=== PATIENT | female | born 1975 | race Caucasian/White ===

== ENCOUNTER 2017-06-16 10:38 | Emergency (ER) | payer SELFPAY ==
[2017-06-16 10:56] VITALS: BP 156/79; PULSE 78; TEMP 98.5; BMI 21.5
--- NOTE | 2017-06-16 12:04 | PDOC ---
History of Present Illness - General Chief Complaint: Respiratory Stated Complaint: DIFFICULTY BREATHING Time Seen by Provider: 06/16/17 11:33 - History of Present Illness Initial Comments: 06/16/17 11:52 CHIEF COMPLAINT: shortness of breath HISTORY OF PRESENT ILLNESS: 41 yo F with no significant PMH presents to [facility] with shortness of breath x 1 week. Patient reports that this shortness of breath is unusual as she "has always exercised regularly" and never had any problems, but this past week she will have some chest discomfort and shortness of breath while exercising, and then even after she stops exercising she continues to feel as if she "can't get enough air." She reports feeling "like I 'm hot to my left jaw or cheek" intermittently. She does report "a little pain to the outside of my left leg, but not really." She denies any fever, chills, nausea, vomiting, diarrhea, abdominal pain, cough, sneezing, recent travel, prolonged periods of sitting, or use of contraceptives. PAST MEDICAL HISTORY: Denies past medical history FAMILY HISTORY: Denies SOCIAL HISTORY:Denies tobacco, alcohol, illicit drug use. SURGICAL HISTORY: Denies ALLERGIES: No known drug allergies REVIEW OF SYSTEMS General/Constitutional: Denies fever or chills. Denies weakness, weight change. HEENT: Denies change in vision. Denies ear pain or discharge. Denies sore throat. Cardiovascular: Shortness of breath x 1 week. Respiratory: Denies cough, wheezing, or hemoptysis. Gastrointestinal: Denies nausea, vomiting, diarrhea or constipation. Denies rectal bleeding. Genitourinary: Denies dysuria, frequency, or change in urination. Musculoskeletal: Denies joint or muscle swelling or pain. Denies neck or back pain. Skin and breasts: Denies rash or easy bruising. Neurologic: Denies headache, vertigo, loss of consciousness, or loss of sensation. PHYSICAL EXAM General Appearance: Well-appearing, appropriately dressed. No apparent distress. HEENT: EOMI, PERRLA, normal ENT inspection, normal voice, TMs normal, pharynx normal. No conjunctival pallor. No photophobia, scleral icterus. Neck: Supple. Trachea midline. No tenderness, rigidity, carotid bruit, stridor , lymphadenopathy, or thyromegaly. Respiratory/Chest: Lungs CTAB. No shortness of breath, chest tenderness, respiratory distress, accessory muscle use. No crackles, rales, rhonchi, stridor , wheezing, dullness Cardiovascular: RRR. S1, S2. Vascular Pulses: Dorsalis-Pedis (R): 2+, Dorsalis-Pedis (L): 2+ Gastrointestinal/Abdominal: Normal bowel sounds. Abdomen soft, non-distended. No tenderness or rebound tenderness. No organomegaly, pulsatile mass, guarding , hernia, hepatomegaly, splenomegaly. Musculoskeletal/Extremities: Negative Margarita's sign, no calf tenderness. Minimal tenderness to anterolateral inferior left thigh. Normal inspection. FROM of all extremities, normal capillary refill. Pelvis Stable. No CVA tenderness. No tenderness to extremities, pedal edema, swelling, erythema or deformity. Integumentary: Appropriate color, dry, warm. No cyanosis, erythema, jaundice or rash Neurologic: housing case manager II-XII intact. Fully oriented, alert. Appropriate mood/affect. Motor strength 5/5. No appreciable EOM palsy, facial droop or sensory deficit. Past History - Past Medical History Allergies/Adverse Reactions: Allergies Allergy/AdvReac Type Severity Reaction Status Date / Time No Known Allergies Allergy Verified 06/16/17 10:51 Home Medications: Ambulatory Orders NK [No Known Home Medication] 06/16/17 COPD: No Other medical history: DENIES. - Suicide/Smoking/Psychosocial Hx Smoking History: Never smoked Hx Alcohol Use: Yes (OCCASIONALLY) Substance Use Type: Alcohol *Physical Exam - Vital Signs Last Vital Signs Temp Pulse Resp BP Pulse Ox 98.5 F 78 19 156/79 100 06/16/17 10:51 06/16/17 10:51 06/16/17 10:51 06/16/17 10:51 06/16/17 10:51 Medical Decision Making - Medical Decision Making 06/16/17 12:06 41 yo F with no significant PMH presents to [facility] with shortness of breath x 1 week. Patient denies any infectious symptoms, denies any history of CAD. Concern for cardiac etiology vs PE. -D-dimer, card profile -EKG 06/16/17 13:38 Trop negative. *DC/Admit/Observation/Transfer Diagnosis at time of Disposition: Shortness of breath - Discharge Dispostion Disposition: HOME Condition at time of disposition: Stable Admit: No - Referrals Referrals: Erick Mclain MD [Staff Physician] - Da Young MD [Staff Physician] - - Patient Instructions Printed Discharge Instructions: DI for Shortness of Breath Additional Instructions: Please follow up with Drs. Mclain or Hector within the next TWO days for complete physical. If you develop any new shortness of breath, difficulty breathing, palpitations, chest pain, pain to your left arm or jaw, or any new or worsening symptoms, please return to the ER immediately. Por favor, bg un seguimiento con el Dr. Mclain o Dr. Young dentro de los pr ximos DOS saeed para completar el examen fsico. Si desarrolla cualquier nueva dificultad para respirar, dificultad para respirar, palpitaciones, dolor en el pecho, dolor en cardenas brazo titus o mandbula, o cualquier sntoma nuevo o que empeora, por favor regrese a la arturo de urgencias inmediatamente. Print Language: MALTESE - Post Discharge Activity
--- NOTE | 2017-06-17 17:14 | EKG ---
Test Reason : Blood Pressure : / mmHG Vent. Rate : 078 BPM Atrial Rate : 078 BPM P-R Int : 146 ms QRS Dur : 100 ms QT Int : 418 ms P-R-T Axes : 066 045 046 degrees QTc Int : 476 ms NORMAL SINUS RHYTHM NORMAL ECG WHEN COMPARED WITH ECG OF 03-DEC-2008 19:45, NO SIGNIFICANT CHANGE WAS FOUND Confirmed by ROCIO JOYNER MD ([id number]) on 06/17/2017 5:13:50 PM Referred By: JAMIE Confirmed By:ROCIO JOYNER MD
== END 2017-06-16 13:45 | disposition home or self-care (01) ==
LOC: JERFT 10:38
DX: R06.02 Shortness of breath (principal)
CPT/HCPCS: 36415; 71046-TC; 82550; 82553; 84484; 85379; 93005; 93010; 99281-25

== ENCOUNTER 2017-06-27 07:30 | Emergency (ER) | payer SELFPAY ==
[2017-06-27 07:40] VITALS: BMI 21.4
[2017-06-27] MEDS ORDERED: METOCLOPRAMIDE HCL INJECTION 10 MG/2 ML VIAL IVPB ONE (09:42)
[2017-06-27] MEDS ORDERED: SODIUM CHLORIDE 1,000 ML IV STA (09:42)
[2017-06-27] MEDS ORDERED: ACETAMINOPHEN 325 MG TABLET (FP) PO ONE (09:43)
[2017-06-27] MEDS ORDERED: ACETAMINOPHEN 325 MG TABLET (FP) ONE (09:53)
[2017-06-27] MEDS ORDERED: METOCLOPRAMIDE HCL INJECTION 10 MG/2 ML VIAL ONE (09:54)
[2017-06-27 10:30] LABS: BASO % 1.3 % (0-2.0); EOS % 1.5 % (0-4.5); HEMATOCRIT 41.3 % (32.4-45.2); HEMOGLOBIN 13.1 GM/dL (10.7-15.3); LYMPH % 36.3 % (8-40); MCH 26.4 pg (25.7-33.7); MCHC 31.8 g/dl (32.0-36.0); MONO % 7.9 % (3.8-10.2); PLATELET COUNT 292 K/MM3 (134-434); RBC 4.97 M/mm3 (3.60-5.2); RDW 17.9 % (11.6-15.6); WHITE BLOOD COUNT 6.1 K/mm3 (4.0-10.0)
[2017-06-27 10:41] LABS: ALK PHOS 71 U/L (45-117); ANION GAP 8 (8-16); BILIRUBIN,TOTAL 0.5 mg/dL (0.2-1.0); BLOOD UREA NITROGEN 6 mg/dL (7-18); CALCIUM 8.8 mg/dL (8.5-10.1); CHLORIDE 105 mmol/L (98-107); CO2 27 mmol/L (21-32); CREATININE 0.6 mg/dL (0.55-1.02); GLUCOSE,RANDOM 96 mg/dL (74-106); SGPT/ALT 19 U/L (12-78); SODIUM 140 mmol/L (136-145); TOT PROT 8.5 g/dl (6.4-8.2)
[2017-06-27 10:45] LABS: POTASSIUM 4.2 mmol/L (3.5-5.1); SGOT/AST 21 U/L (15-37)
[2017-06-27 11:00] LABS: URINE APPEARANCE CLEAR; URINE BILIRUBIN NEGATIVE (NEGATIVE); URINE BLOOD NEGATIVE (NEGATIVE); URINE COLOR LTYELLOW; URINE GLUCOSE (UA) NEGATIVE (NEGATIVE); URINE KETONE NEGATIVE (NEGATIVE); URINE LEUK ESTERASE TRACE (NEGATIVE); URINE NITRITE NEGATIVE (NEGATIVE); URINE PROTEIN NEGATIVE (NEGATIVE); URINE UROBILINOGEN NEGATIVE mg/dL (0.2-1.0)
--- NOTE | 2017-06-27 11:13 | PDOC ---
History of Present Illness - General Chief Complaint: Weakness Stated Complaint: PAIN Time Seen by Provider: 06/27/17 09:14 - History of Present Illness Initial Comments: 06/27/17 11:07 " The patient is a 43 year old female, with no PMH, who presents to the emergency department with left upper and lower extremity numbness since last night. She reports experiencing intermittent numbness localized to the left elbow, as well as the lateral aspect of her left lower leg just below the knee. She denies any weakness or any numbness anywhere else. Pt denies RAYMOND, denies neck pain, denies back pain. She denies visual or auditory changes. She denies dropping things when held in her left hand. She denies gait changes. She denies recent illnesses or sick contacts. She denies bladder or bowel changes. She denies chest pain, shortness of breath, and dizziness. She denies fever, chills, nausea, vomit, diarrhea and constipation. She denies dysuria, frequency , urgency and hematuria. Allergies: NKDA PCP: Dr. Erick Mclain " Past History - Past Medical History Allergies/Adverse Reactions: Allergies Allergy/AdvReac Type Severity Reaction Status Date / Time No Known Allergies Allergy Verified 06/27/17 07:35 Home Medications: Ambulatory Orders NK [No Known Home Medication] 06/27/17 COPD: No - Suicide/Smoking/Psychosocial Hx Smoking History: Never smoked Information on smoking cessation initiated: No Hx Alcohol Use: No Drug/Substance Use Hx: No Substance Use Type: Alcohol Review of Systems - Review of Systems Comments:: 06/27/17 11:10 """GENERAL/CONSTITUTIONAL: No fever or chills. No weakness. HEAD, EYES, EARS, NOSE AND THROAT: No change in vision. No ear pain or discharge. No sore throat. CARDIOVASCULAR: No chest pain or shortness of breath. RESPIRATORY: No cough, wheezing, or hemoptysis. GASTROINTESTINAL: No nausea, vomiting, diarrhea or constipation. GENITOURINARY: No dysuria, frequency, or change in urination. MUSCULOSKELETAL: No joint or muscle swelling or pain. No neck or back pain. SKIN: No rash NEUROLOGIC: (+) numbness to left upper and lower extremities No vertigo, loss of consciousness, ENDOCRINE: No increased thirst. No abnormal weight change. HEMATOLOGIC/LYMPHATIC: No anemia, easy bleeding, or history of blood clots. ALLERGIC/IMMUNOLOGIC: No hives or skin allergy. """ *Physical Exam - Vital Signs Last Vital Signs Temp Pulse Resp BP Pulse Ox 98.5 F 78 17 158/90 100 06/27/17 07:33 06/27/17 07:33 06/27/17 07:33 06/27/17 07:33 06/27/17 07:33 - Physical Exam Comments: 06/27/17 11:11 "GENERAL: Awake, alert, and fully oriented, in no acute distress HEAD: No signs of trauma EYES: PERRLA, EOMI, sclera anicteric, conjunctiva clear ENT: Auricles normal inspection, hearing grossly normal, nares patent, oropharynx clear without exudates. Moist mucosa NECK: Nontender, no stepoffs, Normal ROM, supple, no lymphadenopathy, JVD, or masses LUNGS: Breath sounds equal, clear to auscultation bilaterally. No wheezes, and no crackles HEART: Regular rate and rhythm, normal S1 and S2, no murmurs, rubs or gallops ABDOMEN: Soft, nontender, normoactive bowel sounds. No guarding, no rebound. No masses EXTREMITIES: Normal range of motion, no edema. No clubbing or cyanosis. No cords, erythema, or tenderness NEUROLOGICAL: Cranial nerves II through XII intact. 5/5 strength and sensation in all extremities, Normal speech, normal gait SKIN: Warm, Dry, normal turgor, no rashes or lesions noted. " ED Treatment Course - LABORATORY CBC & Chemistry Diagram: 06/27/17 10:10 06/27/17 10:10 - ADDITIONAL ORDERS Additional order review: Laboratory Results 06/27/17 06/27/17 06/27/17 10:10 10:09 10:09 Sodium 140 Potassium 4.2 Chloride 105 Carbon Dioxide 27 Anion Gap 8 BUN 6 L Creatinine 0.6 Creat Clearance w eGFR > 60 Random Glucose 96 Calcium 8.8 Total Bilirubin 0.5 AST 21 ALT 19 Alkaline Phosphatase 71 Creatine Kinase 113 Troponin I < 0.02 Total Protein 8.5 H Albumin 4.0 Urine HCG, Qual Negative 06/27/17 10:10 RBC 4.97 MCV 83.0 MCHC 31.8 L RDW 17.9 H MPV 10.0 Neutrophils % 53.0 Lymphocytes % 36.3 Monocytes % 7.9 Eosinophils % 1.5 Basophils % 1.3 - Medications Given in the ED: ED Medications Discontinued Medications Generic Name Dose Route Start Last Admin Trade Name Patricio PRN Reason Stop Dose Admin Acetaminophen 650 mg 06/27/17 09:43 06/27/17 10:08 Tylenol - PO 06/27/17 09:44 650 mg ONCE ONE Administration Sodium Chloride 1,000 mls @ 1,000 mls/hr 06/27/17 09:42 06/27/17 10:08 Normal Saline - IV 06/27/17 10:41 1,000 mls/hr ASDIR STA Administration Metoclopramide HCl 10 mg 06/27/17 09:42 06/27/17 10:08 Reglan Injection - IVPB 06/27/17 09:43 10 mg ONCE ONE Administration Medical Decision Making - Medical Decision Making 06/27/17 11:11 41 F with intermittent numbness to L elbow and L knee x 1 day. Has nonfocal neuro exam in ER. CVA very unlikely as pt without risk factors. MS is a consideration but also unlikely as pt with no deficits in ER. - Labs - F/u neurology Labs wnl. Pt is well appearing with no complaints at this time. Clinically stable for DC. I discussed the physical exam findings, ancillary test results and final diagnoses with the patient. I answered all of the patient's questions. The patient was satisfied with the care received and felt comfortable with the discharge plan and treatment plan. The patient agrees to follow up with the primary care physician within 24-72 hours. *DC/Admit/Observation/Transfer Diagnosis at time of Disposition: Paresthesias - Discharge Dispostion Disposition: HOME - Referrals Referrals: Harman Landis DO [Staff Physician] - Da Young MD [Staff Physician] - - Patient Instructions Printed Discharge Instructions: DI for Numbness/tingling Additional Instructions: Please follow up with your primary care doctor and a neurologist within 1 week for further evaluation of your numbness. You may need an MRI to find out why you have these symptoms. Call the numbers provided to make appointments with our internal medicine and neurology clinics. If you experience worsening numbness, weakness, headache, or any other concerning symptoms, return to the ER immediately. - Post Discharge Activity - Attestations Physician Attestion: 06/27/17 11:14 I, Dr. Pardeep Yu MD, attest that this document has been prepared under my direction and personally reviewed by me in its entirety. I further attest, that it accurately reflects all work, treatment, procedures and medical decision -making performed by me.
[2017-06-27 11:29] LABS: EPI CELLS FEW /HPF (FEW); URINE MUCUS RARE
[2017-06-27 12:40] VITALS: BP 140/77; PULSE 70; TEMP 97.5
--- NOTE | 2017-06-28 08:05 | EKG ---
Test Reason : Blood Pressure : / mmHG Vent. Rate : 056 BPM Atrial Rate : 056 BPM P-R Int : 160 ms QRS Dur : 094 ms QT Int : 484 ms P-R-T Axes : 065 058 056 degrees QTc Int : 467 ms SINUS BRADYCARDIA POSSIBLE LEFT ATRIAL ENLARGEMENT BORDERLINE ECG WHEN COMPARED WITH ECG OF 16-JUN-2017 12:16, NO SIGNIFICANT CHANGE WAS FOUND Confirmed by MATHEW DENSON, NICOLAS ([id number]) on 06/28/2017 8:05:15 AM Referred By: Confirmed By:NICOLAS CARMONA MD
== END 2017-06-27 12:25 | disposition home or self-care (01) ==
LOC: JER 07:30
PROC: 3E033GC Introduction of Other Therapeutic Substance into Peripheral Vein, Percutaneous Approach (ICD-10-PCS; principal; 2017-06-27)
PROC: 3E0337Z Introduction of Electrolytic and Water Balance Substance into Peripheral Vein, Percutaneous Approach (ICD-10-PCS; 2017-06-27)
DX: R20.2 Paresthesia of skin (principal)
CPT/HCPCS: 36415; 80053; 81003; 81015; 82550; 84484; 84703; 85025; 93005; 93010; 99284-25

== ENCOUNTER 2021-06-12 11:29 | Emergency (ER) | payer OTHER ==
[2021-06-12 11:35] VITALS: TEMP 98; BMI 20.1
[2021-06-12] MEDS ORDERED: SODIUM CHLORIDE 0.9% 500 ML INFUS.BAG IV ONE (13:06)
[2021-06-12] MEDS ORDERED: METOCLOPRAMIDE HCL INJECTION 10 MG/2 ML VIAL IVPB ONE (13:06)
[2021-06-12] MEDS ORDERED: ACETAMINOPHEN 1000 MG/100 ML BAG IVPB ONE (13:06)
[2021-06-12] MEDS ORDERED: METOCLOPRAMIDE HCL INJECTION 10 MG/2 ML VIAL ONE (13:36)
[2021-06-12] MEDS ORDERED: ACETAMINOPHEN INJECTION 100 ML IVPB ONE (13:37)
[2021-06-12 14:31] LABS: BASO % 1.4 % (0-2.0); EOS % 1.2 % (0-4.5); HEMATOCRIT 36.7 % (32.4-45.2); HEMOGLOBIN 11.9 GM/dL (10.7-15.3); LYMPH % 28.9 % (8-40); MCH 23.6 pg (25.7-33.7); MCHC 32.5 g/dl (32.0-36.0); MEAN CELL VOLUME 72.6 fl (80-96); MONO % 6.1 % (3.8-10.2); NEUT % 62.4 % (42.8-82.8); PLATELET COUNT 350 10^3/uL (134-434); RBC 5.05 M/mm3 (3.60-5.2); RDW 19.2 % (11.6-15.6); WHITE BLOOD COUNT 5.1 K/mm3 (4.0-10.0)
[2021-06-12 14:44] LABS: CALCIUM 8.8 mg/dL (8.5-10.1)
[2021-06-12 14:45] LABS: ALBUMIN 3.9 g/dl (3.4-5.0); BLOOD UREA NITROGEN 6.6 mg/dL (7-18)
[2021-06-12 14:48] LABS: CREATININE 0.6 mg/dL (0.55-1.3)
[2021-06-12 14:50] LABS: BILIRUBIN,TOTAL 0.6 mg/dL (0.2-1)
[2021-06-12 18:09] VITALS: BP 152/84; PULSE 85
== END 2021-06-12 18:11 | disposition home or self-care (01) ==
LOC: JER 11:29
PROC: 3E0333Z Introduction of Anti-inflammatory into Peripheral Vein, Percutaneous Approach (ICD-10-PCS; principal; 2021-06-12)
PROC: 3E033GC Introduction of Other Therapeutic Substance into Peripheral Vein, Percutaneous Approach (ICD-10-PCS; 2021-06-12)
DX: R51.9 Headache, unspecified (principal); I10 Essential (primary) hypertension
CPT/HCPCS: 36415; 70450-TC; 70551-TC; 80053; 85025; 87804; 99285-25; C9803-CS; U0003; U0005